=== PATIENT | female | born 1975 | race Caucasian/White ===

== ENCOUNTER 2018-08-05 20:29 | Emergency (ER) | payer OTHER ==
[~2018-08-05] VITALS: Ht 172.7 cm; Wt 83.9 kg
[2018-08-05 20:36] VITALS: Ht 172.7 cm; Wt 83.9 kg
[2018-08-05 21:19] VITALS: BP 140/101
== END 2018-08-05 21:19 | disposition home or self-care (01) ==
LOC: ED 20:29
DX: S82.62XA Displaced fracture of lateral malleolus of left fibula, initial encounter for closed fracture (principal); F32.9 Major depressive disorder, single episode, unspecified; W01.0XXA Fall on same level from slipping, tripping and stumbling without subsequent striking against object, initial encounter; Y93.89 Activity, other specified; Y92.89 Other specified places as the place of occurrence of the external cause; Y99.8 Other external cause status